=== PATIENT | female | born 1985 | race Two or more races ===

== ENCOUNTER 2018-07-08 22:05 | Emergency (ER) | payer MEDICAID ==
[~2018-07-08] VITALS: Ht 167.6 cm; Wt 57.3 kg
--- NOTE | 2018-07-08 22:50 | NUR ---
PT BIBFAMILY C/O ABD PAIN WITH N/V X 2 DAYS. DENIES DIARRHEA. AOX4. NAD NOTED. RESP EVEN AND UNLABORED. WILL CONTINUE TO MONITOR.
--- NOTE | 2018-07-08 22:51 | NUR ---
URINE PROVIDED AND SENT TO LAB
--- NOTE | 2018-07-08 23:10 | NUR ---
PHLEB AT BEDSIDE FOR LAB DRAW
[2018-07-08 23:20] LABS: APPEARANCE,URINE SL CLOUDY (CLEAR); BILIRUBIN,URINE NEGATIVE (NEGATIVE); BLOOD, URINE NEGATIVE Ery/uL (NEGATIVE); COLOR,URINE YELLOW (YELLOW); KETONES,URINE NEGATIVE (NEGATIVE); LEUKOCYTE ESTERASE ,URINE NEGATIVE (NEGATIVE); NITRITE, URINE NEGATIVE (NEGATIVE); PROTEIN,URINE NEGATIVE (NEGATIVE); UGLUCOSE NEGATIVE (NEGATIVE)
[2018-07-08 23:29] LABS: BASOPHILS % (AUTO) 0.4 % (0.0-2.0); EOSINOPHILS % (AUTO) 0.1 % (0.0-6.0); HEMATOCRIT 40 % (33-45); HEMOGLOBIN 13.5 g/dL (11.5-14.8); LYMPHOCYTES % (AUTO) 27.8 % (20.0-44.0); MEAN CORPUSCULAR HGB CONC 34 g/dl (31.0-36.0); MEAN CORPUSCULAR VOLUME 89 fL (82-100); MONOCYTES # (AUTO) 0.6 /CMM (0.1-1.30); MONOCYTES % (AUTO) 7.6 % (2.0-12.0); NEUTROPHILS # (AUTO) 4.7 /CMM (1.8-8.9); NEUTROPHILS % (AUTO) 64.1 % (43.0-81.0); PLATELET COUNT (AUTO) 187 /CMM (150-450); RED BLOOD CELL COUNT(AUTO) 4.47 MIL/uL (4.0-5.2); WHITE BLOOD COUNT (AUTO) 7.3 K/uL (4.3-11.0)
[2018-07-08 23:33] LABS: BACTERIA,URINE None seen /HPF (None Seen); RBC,URINE 0-2 /HPF (0-2); SQUAMOUS EPITHELIAL CELL,UR Moderate /HPF (None Seen); WBC,URINE 0-2 /HPF (0-3)
[2018-07-08 23:41] LABS: CREATININE 0.7 mg/dL (0.6-1.3); POTASSIUM 3.9 mmol/L (3.5-5.1)
[2018-07-08 23:49] LABS: ALBUMIN 3.8 g/dL (3.4-5.0); BILIRUBIN,DIRECT 0.1 mg/dL (0.0-0.2); BILIRUBIN,TOTAL 0.3 mg/dL (0.2-1.0); TOTAL PROTEIN, SERUM 7.1 g/dL (6.4-8.2)
[2018-07-09] MEDS ORDERED: IOHEXOL-300 100 ML VIAL IV ONE (01:19)
[2018-07-09] MEDS ORDERED: CT SWABBABLE VALVE TRANS SET 1 EA INFUS.SET MC ONE (01:19)
--- NOTE | 2018-07-09 02:05 | NUR ---
PT TAKEN TO RADIOLOGY VIA [facility]
--- NOTE | 2018-07-09 02:34 | NUR ---
PT EXPLAINED RISKS OF LEAVING HOSPITAL IN CURRENT CONDITION IN [place].
[2018-07-09] MEDS ORDERED: PIPERACILLIN /TAZOBACTAM 3.375 G VIAL IV ONE (02:59)
[2018-07-09] MEDS ORDERED: PIPERACILLIN /TAZOBACTAM 3.375 G in IV D5W 50 ML IV ONE (03:00)
[2018-07-09 03:05] VITALS: BP 109/64
--- NOTE | 2018-07-09 03:42 | NUR ---
EXPLAINED RISKS OF LEAVING HOSPITAL AND BENEFITS OF STAYING IN CURRENT CONDITION IN [place]. PT VERBALIZES UNDERSTANDING.
--- NOTE | 2018-07-09 05:02 | NUR ---
Patient does not wish to proceed with medical care recommended by Dr. WHITE. Patient given information related to possible complications, up to and including , which could occur as a result of leaving the hospital at this time. Patient verbalizes understanding of risks involved due to leaving against medical advice. Patient has signed AMA form. PT AMBULATORY WITH [facility]IT ACCOMPANIED BY .
== END 2018-07-09 05:07 | disposition left against medical advice (07) ==
LOC: ER 22:05
DX: K62.89 Other specified diseases of anus and rectum (principal); C22.9 Malignant neoplasm of liver, not specified as primary or secondary; Z98.890 Other specified postprocedural states
CPT/HCPCS: 36415; 76856-TC; 80048-TC; 80076-TC; 81000-TC; 84703-TC; 85025-TC; 87491; 87591; J2543; J7060; Q9967